=== PATIENT | female | born 1960 ===

== ENCOUNTER 2021-07-24 02:21 | Outpatient (CLI) | payer BC, SELFPAY ==
[2021-07-27 11:17] LABS: Hepatitis B Surface Ag Negative (Negative)
[2021-07-27 11:36] LABS: Hepatitis C Ab w Rflx HCV PCR Negative (Negative)
[2021-07-27 11:54] LABS: HIV-1/2 Ag & Ab Screen Negative (Negative)
[2021-07-27 13:12] LABS: Syphilis Serology (RPR) Negative (Negative)
== END 2021-07-24 02:22 | disposition home or self-care (01) ==
LOC: LBO 02:21
PROVIDERS: Visit Provider Obstetrics & Gynecology
DX: Z11.3 Encounter for screening for infections with a predominantly sexual mode of transmission (principal); Z11.4 Encounter for screening for human immunodeficiency virus [HIV]; Z11.59 Encounter for screening for other viral diseases
CPT/HCPCS: 36415; 86803; 87340; 87389; 86592